=== PATIENT | female | born 1935 | race African-American/Black ===

== ENCOUNTER 2019-08-13 21:29 | Inpatient (IN) | payer OTHER ==
[~2019-08-13] VITALS: Ht 157.5 cm; Wt 74.8 kg
[2019-08-13] MEDS ORDERED: ACETAMINOPHEN ES 500 MG TABLET PO ONE (22:15)
[2019-08-13] MEDS ORDERED: LABETALOL HCL 100 MG/20 ML VIAL IV ONE ×2 (22:15→23:45)
[2019-08-13 22:39] LABS: BASOPHILS % (AUTO) 0.7 % (0.0-2.0); EOSINOPHILS # (AUTO) 0.2 K/uL (0.0-0.7); EOSINOPHILS % (AUTO) 2.4 % (0.0-7.0); HEMATOCRIT 37.3 % (31.2-41.9); HEMOGLOBIN 12.3 g/dL (10.9-14.3); LYMPHOCYTES # (AUTO) 1.6 K/uL (20.0-40.0); LYMPHOCYTES % (AUTO) 23.6 % (20.5-51.5); MEAN CORPUSCULAR HEMOGLOBIN 30.9 uug (24.7-32.8); MEAN CORPUSCULAR HGB CONC 33 g/dL (32.3-35.6); MEAN CORPUSCULAR VOLUME 93.6 fL (75.5-95.3); MONOCYTES # (AUTO) 0.5 K/uL (2.0-10.0); MONOCYTES % (AUTO) 6.8 % (0.0-11.0); NEUTROPHILS # (AUTO) 4.6 K/uL (1.8-8.9); NEUTROPHILS % (AUTO) 66.5 % (38.5-71.5); PLATELET COUNT (AUTO) 262 K/uL (179-408); RED BLOOD CELL COUNT(AUTO) 3.98 MIL/uL (3.63-4.92); WHITE BLOOD COUNT (AUTO) 6.9 K/uL (3.8-11.8)
[2019-08-13 22:56] LABS: ALANINE AMINOTRANSFERASE 14 U/L (14-59); ALKALINE PHOSPHATASE 104 U/L (50-136); ASPARTATE AMINOTRANSFERASE 15 U/L (15-37); BILIRUBIN,DIRECT 0.1 mg/dL (0.0-0.2); BILIRUBIN,TOTAL 0.4 mg/dL (0.2-1.0); CARBON DIOXIDE 24 mmol/L (21-32); CHLORIDE 104 mmol/L (98-107); CREATININE 1.5 mg/dL (0.6-1.3); GLUCOSE 138 mg/dL (74-106); POTASSIUM 3.7 mmol/L (3.5-5.1); TOTAL PROTEIN, SERUM 7.9 g/dL (6.4-8.2); UREA NITROGEN, BLOOD 18 mg/dL (7-18)
[2019-08-13] MEDS ORDERED: ACETAMINOPHEN ES 500 MG TABLET ONE (23:07)
[2019-08-13] MEDS ORDERED: LABETALOL HCL 100 MG/20 ML VIAL ONE (23:07)
[2019-08-14] MEDS ORDERED: ASPIRIN 325 MG TABLET PO ONE (00:30)
[2019-08-14] MEDS ORDERED: ASPIRIN 325 MG TABLET ONE (00:33)
[2019-08-14] MEDS ORDERED: CHOL200078 PO (01:36)
[2019-08-14] MEDS ORDERED: CALC0.253 PO (01:36)
[2019-08-14] MEDS ORDERED: LOSA100T31 PO (01:36)
[2019-08-14] MEDS ORDERED: LEVO100T10 PO (01:36)
[2019-08-14] MEDS ORDERED: OMEP20CA11 PO (01:36)
[2019-08-14] MEDS ORDERED: NIFE60TA69 PO (01:36)
[2019-08-14] MEDS ORDERED: ATOR40TA PO (01:36)
[2019-08-14] MEDS ORDERED: ASPI81TA31 PO (01:36)
[2019-08-14] MEDS ORDERED: IV NS 1000 ML 1,000 ML IV PRN (01:51)
[2019-08-14] MEDS ORDERED: CALCITRIOL 0.25 MCG CAPSULE PO SCH (02:00)
[2019-08-14] MEDS ORDERED: MAGNESIUM HYDROXIDE 30 ML LIQUID UDC PO PRN (02:00)
[2019-08-14] MEDS ORDERED: Z GUARD REMEDY PASTE 57 GM TUBE TOP PRN (02:00)
[2019-08-14] MEDS ORDERED: ACETAMINOPHEN 325 MG TABLET PO PRN (02:00)
[2019-08-14] MEDS ORDERED: HYDROCODONE/APAP 5-325MG TABLET PO PRN (02:00)
[2019-08-14] MEDS ORDERED: DEXTROSE 50% 50 ML DISP.SYRIN IV PRN (02:00)
[2019-08-14] MEDS ORDERED: ONDANSETRON 4 MG/2 ML VIAL IV PRN (02:00)
[2019-08-14 02:15] LABS: *BILIRUBIN,URIN NEGATIVE (NEGATIVE); *COLOR,URINE YELLOW (YELLOW); *KETONES,URINE NEGATIVE (NEGATIVE); *UROBILINOGEN,URINE 0.2 E.U./dl (NORMAL); LEUKOCYTE ESTERASE ,URINE NEGATIVE (NEGATIVE); NITRITE, URINE NEGATIVE (NEGATIVE); PH,URINE 5.5 (5.0-8.0); UGLUCOSE NEGATIVE (NEGATIVE)
[2019-08-14 02:19] LABS: *BLOOD, URINE TRACE (NEGATIVE); *CLARITY,URINE HAZY (CLEAR)
[2019-08-14 02:32] LABS: BACTERIA,URINE MODERATE /HPF (NONE SEEN); SQUAMOUS EPITHELIAL CELL,UR FEW /HPF (NONE SEEN); WBC,URINE 0-3 /HPF (0-3)
[2019-08-14 03:15] VITALS: BP 139/51
[2019-08-14 04:00] VITALS: BP 144/75
[2019-08-14 05:19] LABS: CARBON DIOXIDE 23 mmol/L (21-32); CHLORIDE 104 mmol/L (98-107); CREATININE 1.6 mg/dL (0.6-1.3); GLUCOSE 162 mg/dL (74-106); POTASSIUM 3.6 mmol/L (3.5-5.1); UREA NITROGEN, BLOOD 16 mg/dL (7-18)
[2019-08-14 05:23] LABS: BASOPHILS % (AUTO) 0.7 % (0.0-2.0); EOSINOPHILS # (AUTO) 0.1 K/uL (0.0-0.7); HEMATOCRIT 34.2 % (31.2-41.9); HEMOGLOBIN 11.5 g/dL (10.9-14.3); LYMPHOCYTES # (AUTO) 1.5 K/uL (20.0-40.0); LYMPHOCYTES % (AUTO) 21.1 % (20.5-51.5); MEAN CORPUSCULAR HEMOGLOBIN 31.1 uug (24.7-32.8); MEAN CORPUSCULAR HGB CONC 34 g/dL (32.3-35.6); MEAN CORPUSCULAR VOLUME 92.6 fL (75.5-95.3); MONOCYTES # (AUTO) 0.4 K/uL (2.0-10.0); MONOCYTES % (AUTO) 5.5 % (0.0-11.0); NEUTROPHILS # (AUTO) 5.1 K/uL (1.8-8.9); NEUTROPHILS % (AUTO) 71.7 % (38.5-71.5); PLATELET COUNT (AUTO) 245 K/uL (179-408); RED BLOOD CELL COUNT(AUTO) 3.69 MIL/uL (3.63-4.92); WHITE BLOOD COUNT (AUTO) 7.1 K/uL (3.8-11.8)
[2019-08-14] MEDS: BLOOD SUGAR DIAGNOSTIC 1 EACH STRIP VI SCH ×3 (07:45→17:18)
[2019-08-14 08:00] VITALS: BP 144/75
[2019-08-14] MEDS: INSULIN REGULAR, HUMAN 300 UNIT/3 ML VIAL SQ PRN ×2 (08:19→17:30)
[2019-08-14] MEDS ORDERED: LOSARTAN POTASSIUM 50 MG TABLET PO SCH (09:00)
[2019-08-14] MEDS ORDERED: ASPIRIN 81 MG TAB.CHEW PO SCH (09:00)
[2019-08-14] MEDS ORDERED: NIFEdipine XL 90 MG TABSR PO SCH (09:00)
[2019-08-14] MEDS ORDERED: Medication Not On Formulary EA (Omeprazole 1 CAP) PO SCH (09:00)
[2019-08-14] MEDS ORDERED: Medication Not On Formulary EA (Losartan Potassium 1 TAB) PO SCH (09:00)
[2019-08-14] MEDS ORDERED: NIFEdipine XL 60 MG TABSR PO SCH (09:00)
[2019-08-14] MEDS ORDERED: LEVOTHYROXINE SODIUM 100 MCG TABLET PO SCH (09:00)
[2019-08-14] MEDS ORDERED: CHOLECALCIFEROL 1,000 UNIT TABLET PO SCH (09:00)
[2019-08-14 12:00] VITALS: BP 144/75
[2019-08-14 16:00] VITALS: BP 118/56
[2019-08-14] MEDS ORDERED: ATORVASTATIN 40 MG TABLET PO SCH (18:00)
[2019-08-14] MEDS ORDERED: MAGNESIUM SULFATE/D5W 100 ML IV ONE (19:30)
[2019-08-15] MEDS ORDERED: PANTOPRAZOLE SODIUM 40 MG TABLET.DR PO SCH (07:00)
[2019-08-15] MEDS ORDERED: CALCITRIOL 0.25 MCG CAPSULE PO SCH (09:00)
== END 2019-08-14 18:45 | disposition short-term general hospital (02) | DRG 281 ==
LOC: ER 21:31 → TELE-TD3 08-14 00:26 → DOU3 08-14 00:26 → UNDOADMIN 08-14 00:26 → CCU 08-14 02:50
PROVIDERS: ADMIT Nurse Practitioner Acute Care; ATTEND Nurse Practitioner Acute Care
DX: I16.0 Hypertensive urgency (principal); I21.A1 Myocardial infarction type 2; N17.9 Acute kidney failure, unspecified; I12.9 Hypertensive chronic kidney disease with stage 1 through stage 4 chronic kidney disease, or unspecified chronic kidney disease; N18.9 Chronic kidney disease, unspecified; I69.398 Other sequelae of cerebral infarction; R40.2362 Coma scale, best motor response, obeys commands, at arrival to emergency department; R40.2142 Coma scale, eyes open, spontaneous, at arrival to emergency department; R40.2252 Coma scale, best verbal response, oriented, at arrival to emergency department; R20.2 Paresthesia of skin; S43.401A Unspecified sprain of right shoulder joint, initial encounter; W10.8XXA Fall (on) (from) other stairs and steps, initial encounter; Y92.019 Unspecified place in single-family (private) house as the place of occurrence of the external cause; E66.9 Obesity, unspecified; Z68.30 Body mass index [BMI] 30.0-30.9, adult; Z87.891 Personal history of nicotine dependence; E03.9 Hypothyroidism, unspecified; E78.5 Hyperlipidemia, unspecified; I67.2 Cerebral atherosclerosis; I49.3 Ventricular premature depolarization; E11.22 Type 2 diabetes mellitus with diabetic chronic kidney disease; E11.42 Type 2 diabetes mellitus with diabetic polyneuropathy; Y93.01 Activity, walking, marching and hiking; Z79.82 Long term (current) use of aspirin; M48.02 Spinal stenosis, cervical region; M16.11 Unilateral primary osteoarthritis, right hip; I70.0 Atherosclerosis of aorta; E78.00 Pure hypercholesterolemia, unspecified; K21.9 Gastro-esophageal reflux disease without esophagitis
CPT/HCPCS: 36415; 70030-TC; 70450; 71045; 72125; 73030; 73502; 83735; 85025; 85730; 87086; 93005; 93307; A4663; A9150; G0378; J1815; J3490; J7030